=== PATIENT | female | born 1970 | race Caucasian/White ===

== ENCOUNTER 2024-05-20 11:30 | Emergency (ER) | payer SELFPAY ==
[2024-05-20 11:32] VITALS: BP 171/110
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
[2024-05-20] MEDS: TYLENOL 1000 MG PO (14:09)
[2024-05-20 14:11] VITALS: BP 168/92
== END 2024-05-20 14:25 | disposition home or self-care (01) ==
LOC: EMR 11:30
PROVIDERS: EMERGENCY PHYSICIAN Student in an Organized Health Care Education/Training Program
DX: S52.292A Other fracture of shaft of left ulna, initial encounter for closed fracture (principal); V43.52XA Car driver injured in collision with other type car in traffic accident, initial encounter
CPT/HCPCS: 29125; 99283; 73060; 73090; 73110